=== PATIENT | male | born 1970 | race Caucasian/White ===

== ENCOUNTER 2021-11-18 17:13 | Emergency (ER) | payer BC ==
[2021-11-18] MEDS ORDERED: Boostrix 0.5 ML (Tdap) VIAL ONE (19:09)
== END 2021-11-18 19:35 | disposition home or self-care (01) ==
LOC: ERS 17:13
DX: S61.211A Laceration without foreign body of left index finger without damage to nail, initial encounter (principal); W26.0XXA Contact with knife, initial encounter; E03.9 Hypothyroidism, unspecified; Z79.899 Other long term (current) drug therapy; Z23 Encounter for immunization
CPT/HCPCS: 12001; 90471; 90715

== ENCOUNTER 2021-11-19 20:51 | Emergency (ER) | payer BC | END 2021-11-19 21:31 | disposition home or self-care (01) | LOC: ERS 20:51 | DX: S61.211A Laceration without foreign body of left index finger without damage to nail, initial encounter (principal); W26.0XXA Contact with knife, initial encounter | CPT/HCPCS: 99282 ==

== ENCOUNTER 2023-03-12 07:37 | Emergency (ER) | payer BC ==
[2023-03-12] MEDS ORDERED: Ketorolac Tromethamine 30 MG/ML VIAL ONE (08:16)
== END 2023-03-12 09:40 | disposition home or self-care (01) ==
LOC: ERS 07:37
DX: H60.501 Unspecified acute noninfective otitis externa, right ear (principal); H73.91 Unspecified disorder of tympanic membrane, right ear
CPT/HCPCS: 96372; 99282; J1885

== ENCOUNTER → 2024-03-25 | Emergency (ER) | payer BC | LOC: ERS 16:54 | DX: Z53.21 Procedure and treatment not carried out due to patient leaving prior to being seen by health care provider (principal) ==